=== PATIENT | male | born 1975 | race American Indian/Alaskan Native ===

== ENCOUNTER 2018-09-30 19:59 | Emergency (ER) | payer BC ==
--- NOTE | 2018-09-30 20:32 | Emergency Department Report ---
Blank Doc - Documentation Documentation: This is a 43-year-old male that presents with right sided lumbar spine pain. Stated has acute on chronic condition. 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 This initial assessment/diagnostic orders/clinical plan/treatment(s) is/are subject to change based on patient's health status, clinical progression and re- assessment by fellow clinical providers in the ED. Further treatment and workup at subsequent clinical providers discretion. Patient/guardians urged not to elope from the ED as their condition may be serious if not clinically assessed and managed. Initial orders include: 1- Patient sent to [facility] for further evaluation and treatment
[2018-09-30 20:35] VITALS: BP 124/79
--- NOTE | 2018-10-01 02:07 | Emergency Department Report ---
ED Back Pain/Injury HPI - General Chief Complaint: Back Pain/Injury Stated Complaint: BACK PAIN Time Seen by Provider: 09/30/18 20:30 Source: patient, family Limitations: No Limitations - History of Present Illness Initial Comments: Pt is a 43 yo male who presents to the ED with c/o right lower back pain that began yesterday. he states that he does heavy lifting at work. 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 He says it hurts to bend down to lift something. He denies any fall, injury, or trauma. He has never had this previously. He denies any numbness, weakness, tingling, urinary sx, N/V. He is able to ambulate. - Related Data Previous Rx's Medication Instructions Recorded Last Taken Type Cyclobenzaprine [Flexeril] 10 mg PO QHS PRN #10 tablet 10/01/18 Unknown Rx Ibuprofen 600 mg PO Q6HR #20 tablet 10/01/18 Unknown Rx Allergies Allergy/AdvReac Type Severity Reaction Status Date / Time No Known Allergies Allergy Unverified 09/30/18 20:01 ED Review of Systems ROS: Stated complaint: BACK PAIN Other details as noted in HPI Comment: All other systems reviewed and negative ED Past Medical Hx - Surgical History Past Surgical History?: Yes Additional Surgical History: head injury S/P - Social History Smoking Status: Never Smoker Substance Use Type: None - Medications Home Medications: Home Medications Medication Instructions Recorded Confirmed Last Taken Type Cyclobenzaprine [Flexeril] 10 mg PO QHS PRN #10 tablet 10/01/18 Unknown Rx Ibuprofen 600 mg PO Q6HR #20 tablet 10/01/18 Unknown Rx ED Physical Exam - General Limitations: No Limitations General appearance: alert, in no apparent distress - Head Head exam: Present: atraumatic, normocephalic - Eye Eye exam: Present: normal appearance - ENT ENT exam: Present: mucous membranes moist - Neck Neck exam: Present: normal inspection, full ROM. Absent: tenderness - Respiratory Respiratory exam: Present: normal lung sounds bilaterally. Absent: respiratory distress, wheezes, rales, rhonchi, stridor, chest wall tenderness, accessory muscle use, decreased breath sounds, prolonged expiratory - Cardiovascular Cardiovascular Exam: Present: regular rate, normal rhythm, normal heart sounds. Absent: systolic murmur, rubs, gallop - GI/Abdominal GI/Abdominal exam: Present: soft. Absent: distended, tenderness, guarding, rebound, rigid - Back Exam Back exam: Present: full ROM, paraspinal tenderness (right lumbar paraspinal TTP, no midline c-spine, t-spine, or l-spine tenderness, no step offs, no deformities, right sided iliac crest tenderness to palpation, no obvious deformity), other (3 cm lipoma to the left upper back near the scapula ) - Neurological Exam Neurological exam: Present: alert, oriented X3, CN II-XII intact, normal gait, other (strength is 5/5 in the BUE and BLE, no focal neuro deficit). Absent: motor sensory deficit - Psychiatric Psychiatric exam: Present: normal affect, normal mood - Skin Skin exam: Present: warm, dry, intact ED Course Vital Signs 09/30/18 20:32 Temperature 98.4 F Pulse Rate 71 Respiratory 20 Rate Blood Pressure 124/79 O2 Sat by Pulse 100 Oximetry ED Medical Decision Making - Radiology Data Radiology results: report reviewed PROCEDURE: XR PELVIS 1-2V TECHNIQUE: Pelvis radiograph, one view. HISTORY: pain over right iliac crest COMPARISONS: None FINDINGS: Fracture(s): None Joint spaces: Mild narrowing of the hip joint spaces. There is significant spur formation off the superior pubic bone Soft tissues: Normal Foreign bodies: None Bone mineralization: Normal IMPRESSION: There is no evidence of an acute fracture. Mild arthritis This document is electronically signed by Sherry Galvan DO., October 01 2018 02:47:20 AM ET - Medical Decision Making Pt is a 43 yo male who presents to the ED with c/o right lower back pain that began yesterday. he states that he does heavy lifting at work. 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 He says it hurts to bend down to lift something. He denies any fall, injury, or trauma. He has never had this previously. He denies any numbness, weakness, tingling, urinary sx, N/V. He is able to ambulate. pelvis XR shows mild arthritis, bone spur, no acute fracture. Will tx patient for arthritis and muscle strain. Advised to be seen by PCP in the next 2-3 days. Discussed with pt if continue to have pain to see Dr. Ortiz, orthopedic. Pt given anti-inflammatory and short course of muscle relaxer. Advised to only take the muscle relaxer as needed and to not drive or operate heavy machinery while taking. May use heat, ice, rest, and epsom salt bath. Also pt with lipoma on the upper back gave pt the name of a general surgeon. - Differential Diagnosis fracture, dislocation, muscle strain, arthritis Critical care attestation.: If time is entered above; I have spent that time in minutes in the direct care of this critically ill patient, excluding procedure time. ED Disposition Clinical Impression: Bone spur, Arthritis, Muscle strain Lipoma Qualifiers: Lipoma location: trunk Qualified Code(s): D17.1 - Benign lipomatous neoplasm of skin and subcutaneous tissue of trunk Disposition: DC-01 TO HOME OR SELFCARE Is pt being admited?: No Does the pt Need Aspirin: No Condition: Stable Instructions: Muscle Strain (ED), Osteoarthritis (ED) Additional Instructions: Follow up with your primary care doctor in the next 2-3 days. Follow up with Dr. Ortiz, orthopedic if you continue to have pain. Take medication as prescribed. Only use muscle relaxer at night as needed and do not drive or operate heavy machinery. May use heat, ice, epsom salt bath. Return to the emergency room for any new or worsening symptoms. Prescriptions: Cyclobenzaprine [Flexeril] 10 mg PO QHS PRN #10 tablet PRN Reason: Muscle Spasm Ibuprofen 600 mg PO Q6HR #20 tablet Referrals: PRESLEY ORTIZ MD [Staff Physician] - as needed [facility] MD [Primary Care Provider] - 2-3 Days EDIL CABAN DO [Staff Physician] - 3-5 Days Forms: Accompanied Note, Work/School Release Form(ED) Time of Disposition: 03:22 Print Language: MOZAMBICAN
[2018-10-01] MEDS ORDERED: FLEXERIL PO ONE (02:30)
[2018-10-01] MEDS ORDERED: IBUPROFEN PO ONE (02:30)
--- NOTE | 2018-10-01 02:49 | XRay Report ---
PROCEDURE: XR PELVIS 1-2V TECHNIQUE: Pelvis radiograph, one view. HISTORY: pain over right iliac crest COMPARISONS: None FINDINGS: Fracture(s): None Joint spaces: Mild narrowing of the hip joint spaces. There is significant spur formation off the vela perior pubic bone Soft tissues: Normal Foreign bodies: None Bone mineralization: Normal IMPRESSION: There is no evidence of an acute fracture. Mild arthritis This document is electronically signed by Sherry Galvan DO., October 01 2018 02:47:20 AM ET
== END 2018-10-01 03:25 | disposition home or self-care (01) ==
LOC: ED 19:59
DX: S39.012A Strain of muscle, fascia and tendon of lower back, initial encounter (principal); M19.90 Unspecified osteoarthritis, unspecified site; M77.9 Enthesopathy, unspecified; D17.1 Benign lipomatous neoplasm of skin and subcutaneous tissue of trunk; X50.0XXA Overexertion from strenuous movement or load, initial encounter; Y93.89 Activity, other specified; Y92.89 Other specified places as the place of occurrence of the external cause; Y99.8 Other external cause status
CPT/HCPCS: 72170